=== PATIENT | male | born 1960 | race Caucasian/White ===

== ENCOUNTER 2020-10-20 10:05 | Outpatient (CLI) | payer OTHER, SELFPAY ==
[2020-10-20 12:16] LABS: SARS-CoV-2 Ag Positive (Negative)
== END 2020-10-20 10:06 | disposition home or self-care (01) ==
PROVIDERS: PCP Family Medicine; Visit Provider Family Medicine
DX: U07.1 COVID-19 (principal)
CPT/HCPCS: 87426

== ENCOUNTER 2024-02-23 15:20 | Outpatient (CLI) | payer BC, SELFPAY ==
--- NOTE | ~2024-02-23 | XR_ITS ---
XR knee RT 3V 02/23/2024 15:51 Indication: Right knee pain Procedure: 4 views right knee Comparison: No prior studies for comparison. Findings: Moderate osteoarthritis of the right knee. There is side plate and fixation screws transfix ing the proximal tibia. No acute fracture or traumatic malalignment is identified. No significant noe nt effusion. Impression: 1: No acute bone or joint abnormality. 2: Moderate osteoarthritis of the knee with internal fixation of the proximal tibia. Reviewed, dictated and finalized at location B. Impression: 1: No acute bone or joint abnormality. 2: Moderate osteoarthritis of the knee with internal fixation of the proximal t ibia.
== END 2024-02-23 15:21 | disposition home or self-care (01) ==
PROVIDERS: PCP Internal Medicine; Visit Provider Internal Medicine
DX: M25.561 Pain in right knee (principal); M17.11 Unilateral primary osteoarthritis, right knee
CPT/HCPCS: 73562

== ENCOUNTER 2024-02-27 11:15 | Outpatient (CLI) | payer BC, SELFPAY ==
--- NOTE | ~2024-02-27 | CT_ITS ---
EXAMINATION: CT knee RT wo con DATE: 02/27/2024 11:35 INDICATION: Right knee pain. TECHNIQUE: Computed tomography (CT) of the right knee was performed without intravenous contrast. Aut omated exposure control and iterative reconstruction technique were employed. The dose-length product was 251.16 mGy-cm. COMPARISON: Right knee radiographs 02/23/2024 FINDINGS: There is an old healed fracture of proximal tibia with medial plates and screws. No fractur e. There is moderate osteoarthritis of lateral compartment and mild osteoarthritis of medial and chiang llofemoral compartments. There is a small knee joint effusion without loose bodies. There is heteroto pic ossification in the area of medial collateral ligament. IMPRESSION: 1. Moderate right knee osteoarthritis. 2. Small right knee joint effusion with loose bodies. Reviewed, dictated and finalized at location A.
== END 2024-02-27 11:16 ==
PROVIDERS: PCP Internal Medicine; Visit Provider Internal Medicine
DX: M17.11 Unilateral primary osteoarthritis, right knee (principal); M25.461 Effusion, right knee; M23.41 Loose body in knee, right knee
CPT/HCPCS: 73700

== ENCOUNTER 2024-06-23 16:03 | Outpatient (RCR) | payer BC, SELFPAY ==
--- NOTE | 2024-06-23 16:57 | PTOPEVAL1 ---
Assessment and note entered by Jeramy Goins Evaluation Information Assessment Status Evaluation Diagnosis R TKA ICD-10 Condition Codes (PT) Z47.1 Onset 06/16/24 Subjective Information Pt. reports he underwent right TKA 1 week ago. He reports he returned home the next day. He reports that he has been doing exercise 1-2x/day. He reports that pain does not limit sleep. He is taking pain medication, oxycodone, 1x/day. He reports that he is not using a cane or walker. He reports that he has some stiffness in the knee. He reports he would like to return to driving. Reported Pain Level Pain Score 1: Self Report Assessment PT Clinical Summary Pt. is a 64 year old male who enters the clinic 1 week post right TKA revision. He presents with edema, impaired knee ROM, impaired l.e. strength and pain. continued skilled PT is indicated in order to improve these areas to allow for improved gait and IADL performance. Plan of Care Interventions Electrical Stimulation,Gait Training,Hot Pack/Cold Pack,Intermittent Compression,Manual Therapy, Neuro Re-education,Patient/Caregiver Educati, Therapeutic Activities,Therapeutic Exercise PT Services Indicated Yes Treatment Frequency and 2x/week x 10 visits Duration These treatments will address the objective and functional deficits as defined above. The patient will be advanced safely and appropriately in order for the patient to progress towards his/her prior level of function. Additional exercises will be introduced and as well as a comprehensive home exercise program upon discharge, if needed, ?to ensure carryover of functional gains achieved in the clinic. This treatment plan has been reviewed and agreement upon by the patient.
--- NOTE | 2024-06-23 16:58 | OPREHPOC ---
Outpatient Therapy Plan of Care This is a Multidisciplinary Plan of Care that may contain components documented by all disciplines (PT, OT, and ST.) PT Problem 1 PT Problem #1 Knowledge Deficit PT Goal 1 Goal / Goal Update Independent with a HEP addressing mobility zoroastrianism and edema control Target Visit 2 PT Problem 2 PT Problem #2 Impaired Range of Motion PT Goal 1 Goal / Goal Update Pt. will achieve 0-125 degrees right knee AROM Target Visit 10 PT Problem 3 PT Problem #3 Impaired Gait PT Goal 1 Goal / Goal Update Pt. will navigate steps with reciprocal pattern Pt. will ambulate with equal right and left stance time over level surface. Target Visit 10 PT Problem 4 PT Problem #4 Edema PT Goal 1 Goal / Goal Update Reduce right knee joint line girth measurements x 46cm. Target Visit 10
--- NOTE | 2024-07-15 16:34 | OPREHPOC ---
Outpatient Therapy Plan of Care This is a Multidisciplinary Plan of Care that may contain components documented by all disciplines (PT, OT, and ST.) PT Problem 1 PT Problem #1 Knowledge Deficit PT Goal 1 Goal / Goal Update Independent with a HEP addressing mobility voodoo and edema control Target Visit 2 Progress Met PT Problem 2 PT Problem #2 Impaired Range of Motion PT Goal 1 Goal / Goal Update Pt. will achieve 0-125 degrees right knee AROM Target Visit 10 Progress Partially Met PT Problem 3 PT Problem #3 Impaired Gait PT Goal 1 Goal / Goal Update Pt. will navigate steps with reciprocal pattern. partially met Pt. will ambulate with equal right and left stance time over level surface. partially met Target Visit 10 PT Goal 2 Goal / Goal Update pt. will ambulate 1000ft in 6 minutes without AD, and with normal gait mechanics Target Visit 10 PT Problem 4 PT Problem #4 Edema PT Goal 1 Goal / Goal Update Reduce right knee joint line girth measurements x 46cm. Target Visit 10
--- NOTE | 2024-07-15 16:34 | PTOPPROG ---
Assessment and note entered by JT File, PT Evaluation Information Assessment Status Progress Diagnosis R TKA ICD-10 Condition Codes (PT) Z47.1 Onset 06/16/24 Subjective Information patient reports he feels alright today. he reports he was considering today being his last day. however, he reports it is still tight and not back to normal. patient reports he has had some tenderness along the front of the R knee below the scar and along the inside of the R knee. he is 4 weeks and 1 day post op today. Assessment PT Clinical Summary mr. gan presents to skilled PT services for his 7th skilled PT visit today. he presents with continued slight deficits in R knee active and passive rom, weakness of the R hamstrings, and difficulty with normal gait and stair ambulation. he was thinking he was ready for DC today, but after some education and discussion, with the review of his goals, he is willing to continue skilled PT. he will decrease his weekly frequency to 1x weekly for 3 more visits with focus on achievement of remaining long-term goals. Plan of Care Interventions Electrical Stimulation,Gait Training,Hot Pack/Cold Pack,Intermittent Compression,Manual Therapy, Neuro Re-education,Patient/Caregiver Educati, Therapeutic Activities,Therapeutic Exercise PT Services Indicated Yes Treatment Frequency and continue skilled PT 1x weekly for 3 more visits ( Duration 10 total visits) These treatments will address the objective and functional deficits as defined above. The patient will be advanced safely and appropriately in order for the patient to progress towards his/her prior level of function. Additional exercises will be introduced and as well as a comprehensive home exercise program upon discharge, if needed, ?to ensure carryover of functional gains achieved in the clinic. This treatment plan has been reviewed and agreement upon by the patient.
--- NOTE | 2024-08-04 13:32 | PTOPDC ---
Assessment and note entered by Jeramy Goins Evaluation Information Assessment Status Discharge - Pt Not Present Diagnosis R TKA ICD-10 Condition Codes (PT) Z47.1 Onset 06/16/24 Subjective Information Assessment PT Clinical Summary Mr. David contacted the clinic stating that his doctor discharged him from therapy. He attended a total of 9 treatment sessions. During his last appointment on 07/28/24 he achieved 1-122 active ROM at the right knee. He has met the majority of goals with exception of mild ROM limitations. At this time he will be discharged from our care. Plan of Care PT Services Indicated No
== END 2024-07-28 14:03 | disposition home or self-care (01) ==
LOC: CHSPT 16:03
DX: Z47.1 Aftercare following joint replacement surgery (principal); M25.561 Pain in right knee
CPT/HCPCS: 97016; 97110; 97161; 97530

== ENCOUNTER 2024-09-06 00:38 | Day surgery (SDC) | payer BC, SELFPAY ==
[2024-08-25 12:38] VITALS: BMI 38.0
[2024-09-06 06:50] VITALS: BP 136/77; PULSE 84; RESP 18; TEMP 35.9; O2SAT 97; BMI 40.0
[2024-09-06] MEDS: LACTATED RINGERS 1,000 ML 150 ML IV CONT (07:16)
--- NOTE | 2024-09-06 07:16 | WPDANESEPPF ---
Anes - Initial Pre Proc Eval Procedure: Operation Date: 09/06/24 08:00 Proposed Procedures p Colonoscopy - Miguel Ángel Calero DO Date/Time: 09/06/24 07:16 Surgeon: Miguel Ángel Calero DO Pre Op Diagnosis: Rectal Pain Patient Data Age: 64 Gender: M Height: 1.73 m Weight: 119.5 kg Last Vital Signs Temp 35.9 C L 09/06/24 06:50 Pulse 84 09/06/24 06:50 Resp 18 09/06/24 06:50 BP 136/77 09/06/24 06:50 Pulse Ox 97 09/06/24 06:50 O2 Del Method Room Air 09/06/24 06:50 Allergies Allergy/AdvReac Type Severity Reaction Status Date / Time No Known Allergies Allergy Mild Verified 09/06/24 06:59 Home Medications Medication Instructions Recorded Confirmed Type atorvastatin 20 mg tablet 20 mg PO DAILY 08/13/24 09/06/24 History cyanocobalamin (vitamin B-12) 1,000 mcg PO DAILY 08/13/24 09/06/24 History 1,000 mcg capsule fenofibrate 160 mg tablet 160 mg PO DAILY 08/13/24 09/06/24 History hydrocortisone 2.5 % topical cream 1 applic RECTAL QHS PRN Hemorrhoids 08/13/24 09/06/24 History with perineal applicator metformin 500 mg tablet 500 mg PO DAILY 08/13/24 09/06/24 History sertraline 100 mg tablet 100 mg PO DAILY 08/13/24 09/06/24 History trazodone 50 mg tablet 100 mg PO QHS PRN Insomnia 08/13/24 09/06/24 History Stool Softner 2 cap BYMOUTH HS 08/25/24 09/06/24 History tirzepatide 15 mg/0.5 mL 15 mg subcut WEEKLY 08/25/24 09/06/24 History subcutaneous pen injector (Mounjaro) Patient hx anesthesia problems: none Family hx anesthesia problems: none Results Review: All pre-operative results and documents have been reviewed as part of the pre-operative evaluation. FOR[facility]LY [facility], [facility] Past Medical History Medical History (Updated 09/06/24 @ 07:16 by Tito Webber MD) Anxiety Diabetes Morbid obesity REJI on CPAP Surgical History Surgical History History of total right knee replacement (TKR) 06/2024 Family History Family History Father Cancer Mother Anxiety and depression Grandparent Cancer Diabetes mellitus Social History Social History Smoking status: Never smoker Alcohol intake: current Drinks per week: 7 Alcohol use details: BEERS Substance use: never Substance use type: does not use Other substance usage details: OCC. GUMMY Do You Feel Safe in your Home?: Yes Lack of Transportation: No Lack of Food: Never True Current Housing: I Have Housing Concerned About Future Housing: No Difficulty Paying Gas/Electric Bills: No Difficulty Paying for Meds: No Currently Unemployed: No Education: Bachelor's Degree Difficulty w/ Childcare or Family Care: No Living arrangements: with family Spiritual care concerns: No Anes - Eval Final PreProcedure Day of Procedure 09/06/24 07:16 Patient weight: morbidly obese Heart: regular rate and rhythm Lungs: clear to auscultation Airway: Mallampati scale class III Neurological: alert and oriented Last oral intake: >/= 8 hours ASA classification: III Emergent: no Anesthetic plan: proceed Anesthesia type and monitoring: general GIVS and standard monitoring Results Review: All pre-operative results and documents have been reviewed as part of the pre-operative evaluation. Informed Consent: The patient's anesthetic plan and its attendant risks and benefits were discussed with the patient/family/POA. Questions were solicited and answers provided to the satisfaction of the patient/family/POA.
[2024-09-06 07:19] LABS: Glucose Point of Care 165 mg/dl (65-105)
--- NOTE | 2024-09-06 07:30 | PM.IMHP ---
H&P: HPI History of Present Illness Date/Time: 09/06/24 07:30 Chief Complaint: Rectal pain Narrative: 64 yo man presents for colonoscopy. He has a recent hx of anal fissure and was experiencing rectal pain with BMs. It has been 12 years since his last colonoscopy. His rectal pain has improved but he still has a skin tag. He denies hematochezia or melena. Has a grandmother who had colon cancer. Review of Systems Review of Systems: All systems reviewed & are unremarkable except as noted in HPI and below Constitutional: Constitutional: Denies chills, Denies fever(s), Denies headache(s) and Denies weight loss Eyes: Eyes: Denies change in vision ENT: Denies dizziness, Denies headache(s), Denies neck mass and Denies throat swelling Cardiovascular: Cardiovascular: Denies chest pain, Denies lightheadedness and Denies dyspnea Respiratory: Respiratory: Denies cough, Denies dyspnea and Denies wheezing Gastrointestinal: Gastrointestinal: Denies abdominal pain, Denies change in bowel habits, Denies nausea and Denies vomiting Genitourinary: Genitourinary: Denies hematuria and Denies dysuria Musculoskeletal: Musculoskeletal: Reports as per HPI Integumentary/Breasts: Skin/Breast: Reports as per HPI Neurologic: Denies dizziness and Denies headache(s) Allergic/Immunologic: Allergic/Immunologic: Denies throat swelling and Denies wheezing [facility] Past Medical History Medical History (Updated 09/06/24 @ 07:32 by Miguel Ángel Calero DO) Anxiety Diabetes Morbid obesity REJI on CPAP Surgical History Surgical History History of total right knee replacement (TKR) 06/2024 Family History Family History Father Cancer Mother Anxiety and depression Grandparent Cancer Diabetes mellitus Social History Social History Smoking status: Never smoker Alcohol intake: current Drinks per week: 7 Alcohol use details: BEERS Substance use: never Substance use type: does not use Other substance usage details: OCC. GUMMY Do You Feel Safe in your Home?: Yes Lack of Transportation: No Lack of Food: Never True Current Housing: I Have Housing Concerned About Future Housing: No Difficulty Paying Gas/Electric Bills: No Difficulty Paying for Meds: No Currently Unemployed: No Education: Bachelor's Degree Difficulty w/ Childcare or Family Care: No Living arrangements: with family Spiritual care concerns: No Meds Home Medications and Allergies Home Medications Medication Instructions Recorded Confirmed Type atorvastatin 20 mg tablet 20 mg PO DAILY 08/13/24 09/06/24 History cyanocobalamin (vitamin B-12) 1,000 mcg PO DAILY 08/13/24 09/06/24 History 1,000 mcg capsule fenofibrate 160 mg tablet 160 mg PO DAILY 08/13/24 09/06/24 History hydrocortisone 2.5 % topical cream 1 applic RECTAL QHS PRN Hemorrhoids 08/13/24 09/06/24 History with perineal applicator metformin 500 mg tablet 500 mg PO DAILY 08/13/24 09/06/24 History sertraline 100 mg tablet 100 mg PO DAILY 08/13/24 09/06/24 History trazodone 50 mg tablet 100 mg PO QHS PRN Insomnia 08/13/24 09/06/24 History Stool Softner 2 cap BYMOUTH HS 08/25/24 09/06/24 History tirzepatide 15 mg/0.5 mL 15 mg subcut WEEKLY 08/25/24 09/06/24 History subcutaneous pen injector (Mounjaro) Allergies Allergy/AdvReac Type Severity Reaction Status Date / Time No Known Allergies Allergy Mild Verified 09/06/24 06:59 Vital Signs Vital Signs - 24 hr 09/06/24 06:50 Temperature 96.6 F L Pulse Rate 84 Respiratory Rate 18 Blood Pressure 136/77 Pulse Oximetry 97 Oxygen Delivery Room Air Exam Const: General: no acute distress and alert Orientation/consciousness: patient oriented x3 HENMT: Head: normocephalic and atraumatic Ears: hearing grossly normal bilaterally Face/Nose/Sinus: Normal nares present Mouth: Yes Normal oral and palatal mucosa present Eyes: Periorbital: periorbital findings normal Sclera: sclerae normal EOM: EOMs intact bilaterally Neck: Neck: normal visual inspection, no lymphadenopathy and trachea midline Chest: Chest palpation & inspection: normal inspection of the chest Resp: Effort & Inspection: normal respiratory effort Auscultation: clear to auscultation bilaterally Cardio: Jugular venous distension: no JVD Rate: regular rate Rhythm: regular rhythm Heart sounds: S1 normal heart sound present and S2 normal heart sound present Peripheral pulses: Peripheral pulses 2+ throughout GI: Inspection: normal to inspection GI Palp: Yes Soft to palpation, No Tenderness to palpation present (GI), No Guarding due to palpation present (GI) and No Rebound tenderness present Percussion: Yes normal to percussion Auscultation: normal bowel sounds : General: Yes no CVA tenderness Back/Spine/Pelvis: Back: no CVA tenderness Neuro: General: patient oriented x3, no focal motor deficits and CN's II-XI intact bilaterally Cognition (Neuro): normal cognition Speech: normal speech Motor exam (neuro): 5/5 motor strength present throughout Extrem: General: capillary refill normal and no clubbing, cyanosis or edema Assessment and Plan Assessment and plan (1) Rectal pain: Code(s): K62.89 - Other specified diseases of anus and rectum Status: Acute Assessment and Plan: I have recommended colonoscopy. I have discussed the procedure, risks, benefits, and alternatives. Questions were answered. Patient is agreeable to proceed.
[2024-09-06 07:55] VITALS: BP 104/70; PULSE 83; RESP 18; O2SAT 94
[2024-09-06 08:05] VITALS: BP 119/72; PULSE 80; RESP 18; O2SAT 97
[2024-09-06 08:15] VITALS: BP 116/75; PULSE 76; RESP 18; O2SAT 100
== END 2024-09-06 08:25 | disposition home or self-care (01) ==
PROVIDERS: PCP Internal Medicine; Visit Provider Surgery
PROC: 0DJD8ZZ Inspection of Lower Intestinal Tract, Via Natural or Artificial Opening Endoscopic (ICD-10-PCS; CPT 45378; principal; 2024-09-06 08:00)
DX: K62.89 Other specified diseases of anus and rectum (principal); D12.3 Benign neoplasm of transverse colon; D12.0 Benign neoplasm of cecum; K57.30 Diverticulosis of large intestine without perforation or abscess without bleeding; E11.9 Type 2 diabetes mellitus without complications; G47.33 Obstructive sleep apnea (adult) (pediatric); E66.01 Morbid (severe) obesity due to excess calories; Z68.41 Body mass index [BMI] 40.0-44.9, adult; Z79.84 Long term (current) use of oral hypoglycemic drugs
CPT/HCPCS: 45385; 45380; 82948; 88305; J2003; J2704; J7120